=== PATIENT | male | born 1960 ===

== ENCOUNTER → 2016-10-23 | Outpatient (CLI) | payer OTHER ==
--- NOTE | 2016-10-23 22:04 | US ---
EXAMINATION TYPE: US scrotum with doppler. TECHNIQUE: Grayscale and color Doppler Duplex imaging performed of the scrotum. DATE OF EXAM: 10/23/2016 4:02 PM COMPARISON: No previous CLINICAL HISTORY: 55-year-old male disorder of male genital organs. Technologist notes: Patient spoke limited guamanian, he pointed to right testicle and right inguinal ca nal as area of concern. FINDINGS: TESTICLES: Right Testicle: 3.9 x 1.9 x 2.9 cm Left Testicle: 4.6 x 2.7 x 3.6 cm Both testicles show normal homogeneous echotexture without hyperemia. There is satisfactory arterial and venous flow on both sides. EPIDIDYMIS HEAD: Right Epididymis: 1.0 x 1.3 x 1.3 cm Left Epididymis: 0.9 x 0.9 x 1.5 cm No hyperemia. Presence of hydroceles: right 4.7cm, moderate size. Presence of varicoceles: no Scanned lateral right testicle and right inguinal canal, non-peristalsing well circumscribed elongate d hypoechoic area with minimal vascularity seen at patient's area of concern suggesting a fat contain ing right inguinal hernia. IMPRESSION: 1. Findings in the right inguinal region at the site of patient's concern show an elongated, nonperis talsing, hypoechoic structure suspected to represent a fat-containing right inguinal hernia extending nearly into the scrotal sac. 2. Moderate-sized right hydrocele. 3. No evidence for testicular torsion or epididymoorchitis.
== END ==
LOC: RADUSWWP 15:07
PROVIDERS: ATTEND Internal Medicine
DX: N43.3 Hydrocele, unspecified (principal); N50.9 Disorder of male genital organs, unspecified
CPT/HCPCS: 76870; 93975

== ENCOUNTER 2017-02-09 07:34 | Emergency (ER) | payer OTHER ==
[2017-02-09 07:42] VITALS: BP 128/75; PULSE 72; RESP 18; TEMP 97.2
[2017-02-09] MEDS ORDERED: predniSONE 50 MG TAB PO STA (08:05)
[2017-02-09] MEDS ORDERED: diphenhydrAMINE 50 MG/ML 1 ML VIAL IM STA (08:05)
--- NOTE | 2017-02-09 08:15 | ED ---
General Adult HPI - General Chief complaint: Skin/Abscess/Foreign Body Stated complaint: RASH, SKIN CONDITION Time Seen by Provider: 02/09/17 07:40 Source: patient, RN notes reviewed Mode of arrival: ambulatory Limitations: no limitations - History of Present Illness Initial comments: This is a 56-year-old male who presents emergency Department with raised rash on his back chest legs and arms. Patient states his scalp is also itchy. Patient denies any on his hands or feet. Patient states he's been taking Benadryl really helps a little. Patient states he seems to be better when he goes to bed but about 1 AM every morning the rash seems diarrhea. It itches all night. Patient does not know of any new medicines he is on he does not know of any new soaps or detergents. Patient denies any new perfumes or deodorants. Patient denies any difficulty breathing or shortness of breath per patient denies any tightening of the throat. Patient denies similar symptoms in the past. - Related Data Previous Rx's Medication Instructions Recorded Sulfamethoxazole/Trimethoprim 1 each PO Q12H 14 Days 09/09/16 [Bactrim DS 800-160 mg] predniSONE 40 mg PO DAILY #8 tab 02/09/17 Allergies Allergy/AdvReac Type Severity Reaction Status Date / Time No Known Allergies Allergy Verified 02/09/17 07:42 Review of Systems ROS Statement: Those systems with pertinent positive or pertinent negative responses have been documented in the HPI. ROS Other: All systems not noted in ROS Statement are negative. Past Medical History Past Medical History: No Reported History History of Any Multi-Drug Resistant Organisms: None Reported Past Surgical History: No Surgical Hx Reported Past Psychological History: No Psychological Hx Reported Smoking Status: Current every day smoker Past Alcohol Use History: None Reported Past Drug Use History: None Reported General Exam - General Exam Comments Initial Comments: GENERAL: Patient is well-developed and well-nourished. Patient is nontoxic and well- hydrated and is in mild distress. ENT: Neck is soft and supple. No significant lymphadenopathy is noted. Oropharynx is clear. Moist mucous membranes. Neck has full range of motion without eliciting any pain. EYES: The sclera were anicteric and conjunctiva were pink and moist. Extraocular movements were intact and pupils were equal round and reactive to light. Eyelids were unremarkable. PULMONARY: Unlabored respirations. Good breath sounds bilaterally. No audible rales rhonchi or wheezing was noted. CARDIOVASCULAR: There is a regular rate and rhythm without any murmurs gallops or rubs. SKIN: Patient's urticaria on his back chest arms and legs raised NEUROLOGIC: Patient is alert and oriented x3. Cranial nerves II through XII are grossly intact. Motor and sensory are also intact. Normal speech, volume and content. Symmetrical smile. MUSCULOSKELETAL: Normal extremities with adequate strength and full range of motion. Urticaria in his legs and arms LYMPHATICS: No significant lymphadenopathy is noted PSYCHIATRIC: Normal psychiatric evaluation. Limitations: no limitations Course Vital Signs 02/09/17 07:36 Temperature 97.2 F L Pulse Rate 72 Respiratory 18 Rate Blood Pressure 128/75 O2 Sat by Pulse 100 Oximetry Disposition Clinical Impression: Allergic reaction Disposition: HOME SELF-CARE Prescriptions: predniSONE 40 mg PO DAILY #8 tab Time of Disposition: 08:13
== END 2017-02-09 08:34 | disposition home or self-care (01) ==
LOC: EC 07:34
DX: T78.40XA Allergy, unspecified, initial encounter (principal); F17.200 Nicotine dependence, unspecified, uncomplicated
CPT/HCPCS: 99282; 96372; J1200; J7512

== ENCOUNTER 2017-04-17 15:18 | Emergency (ER) | payer OTHER ==
[2017-04-17 15:56] VITALS: RESP 18
[2017-04-17] MEDS ORDERED: methylPREDNISolone SOD SUCCI 125 MG/2 ML VIAL IM ONE (16:32)
[2017-04-17] MEDS ORDERED: FAMOTIDINE 20 MG TAB PO STA (16:33)
[2017-04-17] MEDS ORDERED: diphenhydrAMINE 50 MG CAP PO STA (16:33)
--- NOTE | 2017-04-17 16:40 | ED ---
Skin/Abscess/FB HPI - General Chief complaint: Skin/Abscess/Foreign Body Stated complaint: Infection/Eyes/arms Time Seen by Provider: 04/17/17 16:25 Source: patient Mode of arrival: ambulatory Limitations: no limitations - History of Present Illness Initial comments: Patient is a 56-year-old male presenting to the emergency department with complaints of ALLERGIC reaction. Patient does not speak Swazi and has an christian science reader at bedside. Per christian science reader, patient ate a banana at midnight last night and this morning developed swelling around his right eye, a generalized rash, and is currently complaining of itching. Per christian science reader, patient states he's had similar symptoms in the past. Per christian science reader, patient denies shortness of breath, breathing difficulties, or tongue swelling. No treatment prior to arrival. Per christian science reader, patient has no other symptoms. - Related Data Home Medications Medication Instructions Recorded Confirmed Naproxen Sodium [Aleve] 220 mg PO Q12HR PRN 04/17/17 04/17/17 Previous Rx's Medication Instructions Recorded Ranitidine HCl [Zantac] 150 mg PO BID #10 tab 04/17/17 diphenhydrAMINE [Benadryl] 50 mg PO Q6H PRN #16 capsule 04/17/17 predniSONE 50 mg PO DAILY #5 tablet 04/17/17 Allergies Allergy/AdvReac Type Severity Reaction Status Date / Time No Known Allergies Allergy Verified 04/17/17 16:21 Review of Systems ROS Statement: Those systems with pertinent positive or pertinent negative responses have been documented in the HPI. ROS Other: All systems not noted in ROS Statement are negative. Past Medical History Past Medical History: No Reported History History of Any Multi-Drug Resistant Organisms: None Reported Past Surgical History: No Surgical Hx Reported Past Psychological History: No Psychological Hx Reported Smoking Status: Current every day smoker Past Alcohol Use History: None Reported Past Drug Use History: None Reported General Exam - General Exam Comments Initial Comments: GENERAL: Pt awake and alert, well-appearing, well-nourished, and in no acute distress. HEAD: Atraumatic, normocephalic. EYES: Pupils equal, round, and reactive to light, extraocular movements intact, sclera anicteric, conjunctiva are normal. Patient has some mild swelling below his right eye. ENT: Oropharynx clear without exudates. Moist mucous membranes. No oral lesions. NECK:Normal range of motion, supple without lymphadenopathy or JVD. LUNGS: Breath sounds clear to auscultation bilaterally. No wheezes, rales, or rhonchi. HEART: Heart S1, S2, no S3 or S4. Regular rate and rhythm. No murmurs, rubs or gallops. ABDOMEN: Soft, nontender, nondistended, normoactive bowel sounds. No guarding, no rebound. No masses or organomegaly appreciated. MUSCULOSKELETAL: Normal ROM, no tenderness. Strength 5/5. EXTREMITIES: 2+ peripheral pulses. No edema. No calf tenderness. NEUROLOGICAL: Pt oriented x 3. No focal deficits noted. Strength and sensation grossly intact. PSYCH: Normal mood, normal affect. SKIN: Warm, dry. Generalized maculopapular rash with erythema consistent with hives. Limitations: no limitations Course Vital Signs 04/17/17 04/17/17 15:53 17:08 Temperature 97.0 F L 97.2 F L Pulse Rate 90 77 Respiratory 18 18 Rate Blood Pressure 118/78 118/77 O2 Sat by Pulse 97 Oximetry Medical Decision Making - Medical Decision Making ALLERGIC reaction with urticaria suspect secondary to banana without anaphylaxis. Patient treated with Solu-Medrol, Benadryl, and Pepcid. Patient instructed to follow-up with primary care physician and possibly meat dresser. Patient instructed to avoid foods that trigger ALLERGIC reaction. Discharge instructions and return parameters reviewed. Disposition Clinical Impression: Allergic reaction, Urticaria Disposition: HOME SELF-CARE Condition: Good Instructions: Urticaria (ED) Additional Instructions: Continue prednisone, Zantac, and Benadryl as directed. Follow-up with primary care physician as directed. Consider follow-up with meat dresser. Avoid foods that cause ALLERGIC reaction. Please return to the emergency department with symptoms of difficulty breathing, tongue tingling, swollen lips, any other worsening symptoms. Prescriptions: diphenhydrAMINE [Benadryl] 50 mg PO Q6H PRN #16 capsule PRN Reason: Allergic Reaction predniSONE 50 mg PO DAILY #5 tablet Ranitidine HCl [Zantac] 150 mg PO BID #10 tab Referrals: Donovan Nuñez MD [Primary Care Provider] - 1-2 days Time of Disposition: 16:39
[2017-04-17 17:12] VITALS: BP 118/77; PULSE 77; TEMP 97.2
== END 2017-04-17 17:08 | disposition home or self-care (01) ==
LOC: EC 15:18
DX: L50.0 Allergic urticaria (principal); F17.200 Nicotine dependence, unspecified, uncomplicated
CPT/HCPCS: 99283; 96372; J2930

== ENCOUNTER 2017-07-04 07:10 | Emergency (ER) | payer OTHER ==
[2017-07-04] MEDS ORDERED: methylPREDNISolone SOD SUCCI 125 MG/2 ML VIAL IM STA (08:32)
--- NOTE | 2017-07-04 08:38 | ED ---
General Adult HPI - General Chief complaint: Skin/Abscess/Foreign Body Stated complaint: Rash Time Seen by Provider: 07/04/17 08:16 Source: patient, RN notes reviewed Mode of arrival: ambulatory Limitations: language barrier - History of Present Illness Initial comments: Patient 56-year-old male who speaks limited Wolof presents with a chief complaint of a rash. History provided through an marine farmer stating that his had a rash off over the last several months. Has been seen here in emergency room for this. Has been taking some Benadryl, prednisone, rimantadine at times for this rash. She is located to the legs primarily in some spots on his torso. He states. Initially high light. Patient thought it was due to some food that he was eating and stopped this but still expresses rash. Unsure of any other new contacts. Patient denies any recent fever, chills, shortness of breath, chest pain, back pain, abdominal pain, nausea or vomiting, numbness or tingling, dysuria or hematuria, constipation or diarrhea, headaches or visual changes, or any other complaints. - Related Data Previous Rx's Medication Instructions Recorded Ranitidine HCl [Zantac] 150 mg PO BID #10 tab 04/17/17 diphenhydrAMINE [Benadryl] 50 mg PO Q6H PRN #16 capsule 04/17/17 predniSONE 50 mg PO DAILY #5 tablet 04/17/17 Ranitidine HCl 150 mg PO BID #20 tab 07/04/17 diphenhydrAMINE [Benadryl] 1 - 2 tab PO Q6HR PRN #30 capsule 07/04/17 predniSONE 60 mg PO DAILY 5 Days 07/04/17 Allergies Allergy/AdvReac Type Severity Reaction Status Date / Time No Known Allergies Allergy Verified 07/04/17 08:26 Review of Systems ROS Statement: Those systems with pertinent positive or pertinent negative responses have been documented in the HPI. ROS Other: All systems not noted in ROS Statement are negative. Past Medical History Past Medical History: No Reported History History of Any Multi-Drug Resistant Organisms: None Reported Past Surgical History: No Surgical Hx Reported Past Psychological History: No Psychological Hx Reported Smoking Status: Current every day smoker Past Alcohol Use History: None Reported Past Drug Use History: None Reported General Exam - General Exam Comments Initial Comments: General: The patient is awake and alert, in no distress, and does not appear acutely ill. Eye: Pupils are equal, round and reactive to light, extra-ocular movements are intact. No nystagmus. There is normal conjunctiva bilaterally. No signs of icterus. Ears, nose, mouth and throat: There are moist mucous membranes and no oral lesions. Neck: The neck is supple, there is no tenderness or JVD. Cardiovascular: There is a regular rate and rhythm. No murmur, rub or gallop is appreciated. Respiratory: Lungs are clear to auscultation, respirations are non-labored, breath sounds are equal. No wheezes, stridor, rales, or rhonchi. Musculoskeletal: Normal ROM, no tenderness. Strength 5/5. Sensation intact. Pulses equal bilaterally 2+. Neurological: A&O x 3. CN II-XII intact, There are no obvious motor or sensory deficits. Coordination appears grossly intact. Speech is normal. Skin: Like rash to the legs bilaterally and upper torso. No sign of infection. Psychiatric: Cooperative, appropriate mood & affect, normal judgment. Limitations: language barrier Course Vital Signs 07/04/17 07:18 Temperature 96.7 F L Pulse Rate 84 Respiratory 17 Rate Blood Pressure 119/72 O2 Sat by Pulse 100 Oximetry Medical Decision Making - Medical Decision Making Given shot of steroids here the emergency room for symptoms and have prescriptions for steroids, Benadryl, Pepcid renewed. Disposition Clinical Impression: Allergic reaction Disposition: HOME SELF-CARE Condition: Good Instructions: Urticaria (ED) Additional Instructions: Please use medications as prescribed and follow-up with family doctor for further evaluation of rash also dermatology as discussed. Return to emergency room if any symptoms increase or worsen or further concerns. Prescriptions: diphenhydrAMINE [Benadryl] 1 - 2 tab PO Q6HR PRN #30 capsule PRN Reason: Allergic Reaction predniSONE 60 mg PO DAILY 5 Days Ranitidine HCl 150 mg PO BID #20 tab Referrals: Donovan Nuñez MD [Primary Care Provider] - 1-2 days Martin Joseph MD [STAFF PHYSICIAN] - 1-2 days Time of Disposition: 08:34
[2017-07-04 08:44] VITALS: BP 115/68; PULSE 80; RESP 18; TEMP 97.6
== END 2017-07-04 08:44 | disposition home or self-care (01) ==
LOC: EC 07:10
DX: T78.49XA Other allergy, initial encounter (principal); F17.200 Nicotine dependence, unspecified, uncomplicated
CPT/HCPCS: 99282; 96372; J2930

== ENCOUNTER 2018-02-10 14:53 | Emergency (ER) | payer OTHER ==
[2018-02-10 15:08] VITALS: BP 111/71; PULSE 71; RESP 16; TEMP 97.9
--- NOTE | 2018-02-10 16:10 | ED ---
General Adult HPI - General Chief complaint: Skin/Abscess/Foreign Body Stated complaint: Rash Time Seen by Provider: 02/10/18 15:14 Source: patient, family, RN notes reviewed Mode of arrival: ambulatory Limitations: language barrier - History of Present Illness Initial comments: 57-year-old male presents to the emergency department with his nephew who is translating for him. Patient states that he has had a rash for one year. He shouldn't states the rash is on the insides of the elbow and the back. Patient states the rash moves around his body but has been consistently on the right shoulder and inner elbows for the past couple months. Patient states he had an appointment with Dr. Joseph (Derm) but did not go. Patient has been taking Zyrtec inconsistently over the past several months. Patient denies any other complaints at this time including fever, shortness of breath, chest pain, abdominal pain, nausea or vomiting. - Related Data Home Medications Medication Instructions Recorded Confirmed Cetirizine HCl [Zyrtec] 10 mg PO DAILY 02/10/18 02/10/18 Previous Rx's Medication Instructions Recorded Hydrocortisone Cream 1 applic TOPICAL BID #1 tube 02/10/18 [Hydrocortisone 1% Cream] Allergies Allergy/AdvReac Type Severity Reaction Status Date / Time No Known Allergies Allergy Verified 02/10/18 15:25 Review of Systems ROS Statement: Those systems with pertinent positive or pertinent negative responses have been documented in the HPI. ROS Other: All systems not noted in ROS Statement are negative. Past Medical History Past Medical History: No Reported History History of Any Multi-Drug Resistant Organisms: None Reported Past Surgical History: No Surgical Hx Reported Past Psychological History: No Psychological Hx Reported Smoking Status: Current every day smoker Past Alcohol Use History: None Reported Past Drug Use History: None Reported General Exam Limitations: language barrier General appearance: alert, in no apparent distress (layingin bed talking with Nephew) Respiratory exam: Present: normal lung sounds bilaterally. Absent: respiratory distress, wheezes, rales, rhonchi, stridor Cardiovascular Exam: Present: regular rate, normal rhythm, normal heart sounds. Absent: systolic murmur, diastolic murmur, rubs, gallop, clicks Skin exam: Present: rash (Patient has an erythematous raised 3 cm x 2 cm patch over the superior right scapula. Patient also has plaque-like erythema noted on bilateral inner elbows. No excoriations or signs of infection noted. No spreading redness or warmth to the rashes. No lesions inside the mouth.) Course Vital Signs 02/10/18 15:04 Temperature 97.9 F Pulse Rate 71 Respiratory 16 Rate Blood Pressure 111/71 O2 Sat by Pulse 97 Oximetry Medical Decision Making - Medical Decision Making 57-year-old male presents to the emergency department for a chief complaint of rash times one year. Patient states the rash has been on his posterior right shoulder and bilateral elbows. Patient has taken Zyrtec inconsistently over the past few months. On exam, rash is plaque-like on the inner elbows. It is raised and erythematous on the right shoulder blade. It does not appear infectious in nature. It is not generalized. No fevers or recent travel. Patient will be given a steroid cream to apply twice a day. He was directed to apply it to his inner elbows and affected area on right scapula twice a day. He is also to continue the Zyrtec daily. He is to follow up with either Dr. Joseph (derm) or his primary care doctor in one to 2 days. He is to return to the emergency department if symptoms worsen. Disposition Clinical Impression: Rash Disposition: HOME SELF-CARE Condition: Good Instructions: Eczema (ED) Additional Instructions: Please use steroid cream as directed. Please continue to take cetirizine daily. Return to the emergency department if you have any worsening symptoms. Otherwise follow-up with dermatology or primary care provider in 1-2 days. Prescriptions: Hydrocortisone Cream [Hydrocortisone 1% Cream] 1 applic TOPICAL BID #1 tube Is patient prescribed a controlled substance at d/c from ED?: No Referrals: Donovan Nuñez MD [Primary Care Provider] - 1-2 days Martin Joseph MD [STAFF PHYSICIAN] - 1-2 days Time of Disposition: 16:12
== END 2018-02-10 16:21 | disposition home or self-care (01) ==
LOC: EC 14:53
DX: R21 Rash and other nonspecific skin eruption (principal); F17.200 Nicotine dependence, unspecified, uncomplicated; Z79.899 Other long term (current) drug therapy
CPT/HCPCS: 99282

== ENCOUNTER 2018-07-01 14:28 | Emergency (ER) | payer OTHER ==
[2018-07-01 15:14] VITALS: RESP 18
--- NOTE | 2018-07-01 15:17 | ED ---
General Adult HPI - General Chief complaint: Upper Respiratory Infection Stated complaint: chest pain, ear pain Time Seen by Provider: 07/01/18 15:08 Source: patient, family, RN notes reviewed Mode of arrival: ambulatory Limitations: language barrier - History of Present Illness Initial comments: 57-year-old male presents for evaluation of cough and bilateral ear drainage. History is obtained from both the patient who speaks limited Indonesian and from his brother who is able to translate. Patient states that for the past 2 months he's had cough which is productive of sputum, and left-sided chest pain, pain is worse with cough. Patient is a current smoker. Denies fever or chills. Denies abdominal pain. States he's had some nausea vomiting however this was approximately 10 days ago. He also complains of bilateral ear drainage. Denies rhinorrhea. Denies sore throat. According to family member patient does not have any chronic medical problems. No heart condition, no known lung problems. - Related Data Previous Rx's Medication Instructions Recorded Loratadine [Claritin] 10 mg PO DAILY #30 tab 07/01/18 Allergies Allergy/AdvReac Type Severity Reaction Status Date / Time No Known Allergies Allergy Verified 07/01/18 16:04 Review of Systems ROS Statement: Those systems with pertinent positive or pertinent negative responses have been documented in the HPI. ROS Other: All systems not noted in ROS Statement are negative. Past Medical History Past Medical History: No Reported History History of Any Multi-Drug Resistant Organisms: None Reported Past Surgical History: No Surgical Hx Reported Past Psychological History: No Psychological Hx Reported Smoking Status: Current every day smoker Past Alcohol Use History: None Reported Past Drug Use History: None Reported General Exam Limitations: language barrier General appearance: alert, in no apparent distress Head exam: Present: atraumatic, normocephalic Eye exam: Present: normal appearance, PERRL ENT exam: Present: normal exam, TM's normal bilaterally Respiratory exam: Present: normal lung sounds bilaterally. Absent: respiratory distress, wheezes, rales, rhonchi Cardiovascular Exam: Present: regular rate, normal rhythm GI/Abdominal exam: Present: soft. Absent: distended, tenderness, guarding Extremities exam: Present: normal inspection, normal capillary refill. Absent: pedal edema Neurological exam: Present: alert, CN II-XII intact. Absent: motor sensory deficit Skin exam: Present: warm, dry, intact. Absent: cyanosis, diaphoretic Course Vital Signs 07/01/18 07/01/18 07/01/18 14:40 15:12 15:29 Temperature 97.8 F Pulse Rate 77 70 Pulse Rate [ 67 [employer] ] Respiratory 20 18 Rate Blood Pressure 107/71 113/75 O2 Sat by Pulse 98 97 Oximetry EKG Findings - EKG Comments: EKG Findings:: G: Normal sinus rhythm, rate of 67, HI interval 1:30, QRS duration 94, QTC 392, QTC 414, no ST segment elevation, T waves are upright Medical Decision Making - Medical Decision Making 57-year-old male presenting with symptoms concerning more for ALLERGIES and cough associated with tobacco use. However given the patient is a poor historian, workup is expanded in the emergency department. Chest x-rays obtained, negative for focal pneumonia or acute findings. EKG is obtained, this is negative for any acute ischemic changes. CBC, CMP, and troponin are obtained, these are all within normal limits. Patient will be given Claritin, he is encouraged to quit smoking. He will follow-up with his primary care physician. Return with worsening or changing symptoms. - Lab Data Result diagrams: 07/01/18 15:20 07/01/18 15:20 Lab Results 07/01/18 07/01/18 07/01/18 Range/Units 15:20 15:20 15:20 WBC 4.8 (3.8-10.6) k/uL RBC 5.09 (4.30-5.90) m/uL Hgb 14.7 (13.0-17.5) gm/dL Hct 44.5 (39.0-53.0) % MCV 87.5 (80.0-100.0) fL MCH 28.9 (25.0-35.0) pg MCHC 33.1 (31.0-37.0) g/dL RDW 13.0 (11.5-15.5) % Plt Count 205 (150-450) k/uL Neutrophils % 53 % Lymphocytes % 35 % Monocytes % 6 % Eosinophils % 5 % Basophils % 1 % Neutrophils # 2.5 (1.3-7.7) k/uL Lymphocytes # 1.7 (1.0-4.8) k/uL Monocytes # 0.3 (0-1.0) k/uL Eosinophils # 0.2 (0-0.7) k/uL Basophils # 0.0 (0-0.2) k/uL PT (9.0-12.0) sec INR (<1.2) APTT (22.0-30.0) sec Sodium 142 (137-145) mmol/L Potassium 4.5 (3.5-5.1) mmol/L Chloride 111 H (98-107) mmol/L Carbon Dioxide 27 (22-30) mmol/L Anion Gap 4 mmol/L BUN 19 (9-20) mg/dL Creatinine 0.74 (0.66-1.25) mg/dL Est GFR (CKD-EPI)AfAm >90 (>60 ml/min/1.73 sqM) Est GFR (CKD-EPI)NonAf >90 (>60 ml/min/1.73 sqM) Glucose 93 (74-99) mg/dL Calcium 8.8 (8.4-10.2) mg/dL Magnesium 1.9 (1.6-2.3) mg/dL Total Bilirubin 0.6 (0.2-1.3) mg/dL AST 21 (17-59) U/L ALT 25 (21-72) U/L Alkaline Phosphatase 77 (38-126) U/L Total Creatine Kinase 64 (55-170) U/L CK-MB (CK-2) 0.4 (0.0-2.4) ng/mL CK-MB (CK-2) Rel Index 0.6 Troponin I <0.012 (0.000-0.034) ng/mL NT-Pro-B Natriuret Pep pg/mL Total Protein 7.0 (6.3-8.2) g/dL Albumin 3.8 (3.5-5.0) g/dL 07/01/18 07/01/18 Range/Units 15:20 15:20 WBC (3.8-10.6) k/uL RBC (4.30-5.90) m/uL Hgb (13.0-17.5) gm/dL Hct (39.0-53.0) % MCV (80.0-100.0) fL MCH (25.0-35.0) pg MCHC (31.0-37.0) g/dL RDW (11.5-15.5) % Plt Count (150-450) k/uL Neutrophils % % Lymphocytes % % Monocytes % % Eosinophils % % Basophils % % Neutrophils # (1.3-7.7) k/uL Lymphocytes # (1.0-4.8) k/uL Monocytes # (0-1.0) k/uL Eosinophils # (0-0.7) k/uL Basophils # (0-0.2) k/uL PT 10.2 (9.0-12.0) sec INR 1.0 (<1.2) APTT 22.7 (22.0-30.0) sec Sodium (137-145) mmol/L Potassium (3.5-5.1) mmol/L Chloride (98-107) mmol/L Carbon Dioxide (22-30) mmol/L Anion Gap mmol/L BUN (9-20) mg/dL Creatinine (0.66-1.25) mg/dL Est GFR (CKD-EPI)AfAm (>60 ml/min/1.73 sqM) Est GFR (CKD-EPI)NonAf (>60 ml/min/1.73 sqM) Glucose (74-99) mg/dL Calcium (8.4-10.2) mg/dL Magnesium (1.6-2.3) mg/dL Total Bilirubin (0.2-1.3) mg/dL AST (17-59) U/L ALT (21-72) U/L Alkaline Phosphatase (38-126) U/L Total Creatine Kinase (55-170) U/L CK-MB (CK-2) (0.0-2.4) ng/mL CK-MB (CK-2) Rel Index Troponin I (0.000-0.034) ng/mL NT-Pro-B Natriuret Pep 23 pg/mL Total Protein (6.3-8.2) g/dL Albumin (3.5-5.0) g/dL Disposition Clinical Impression: Seasonal allergies, Upper respiratory infection, Tobacco use Disposition: HOME SELF-CARE Instructions: Upper Respiratory Infection (ED), Allergies (ED), How to Stop Smoking (ED) Additional Instructions: Please follow up with primary care physician. Return with worsening or changing symptoms. Prescriptions: Loratadine [Claritin] 10 mg PO DAILY #30 tab Is patient prescribed a controlled substance at d/c from ED?: No Referrals: Donovan Nuñez MD [Primary Care Provider] - 1-2 days Time of Disposition: 17:11
[2018-07-01 15:40] LABS: Basophils % (A) 1 %; Eosinophils # (A) 0.2 k/uL (0-0.7); Eosinophils % (A) 5 %; HCT 44.5 % (39.0-53.0); HGB 14.7 gm/dL (13.0-17.5); Lymphocytes # (A) 1.7 k/uL (1.0-4.8); Lymphocytes % (A) 35 %; MCH 28.9 pg (25.0-35.0); MCHC 33.1 g/dL (31.0-37.0); MCV 87.5 fL (80.0-100.0); Mean Platelet Volume 7.4; Monocytes # (A) 0.3 k/uL (0-1.0); Monocytes % (A) 6 %; Neutrophils # (A) 2.5 k/uL (1.3-7.7); Neutrophils % (A) 53 %; Platelet Count 205 k/uL (150-450); RBC 5.09 m/uL (4.30-5.90); WBC 4.8 k/uL (3.8-10.6)
--- NOTE | 2018-07-01 15:45 | XR ---
EXAMINATION TYPE: XR chest 2V DATE OF EXAM: 07/01/2018 COMPARISON: Prior chest x-ray 09/15/2017 HISTORY: Chest pain TECHNIQUE: Frontal and lateral views of the chest are obtained. FINDINGS: There is no focal air space opacity, pleural effusion, or pneumothorax seen. The cardiac silhouette size is within normal limits. The osseous structures are intact. There are overlying car diac leads. There is a spinal curvature. IMPRESSION: No acute cardiopulmonary process.
[2018-07-01 15:46] LABS: ALT 25 U/L (21-72); AST 21 U/L (17-59); Albumin 3.8 g/dL (3.5-5.0); Alkaline Phosphatase 77 U/L (38-126); Anion Gap 4 mmol/L; Blood Urea Nitrogen 19 mg/dL (9-20); Calcium 8.8 mg/dL (8.4-10.2); Carbon Dioxide 27 mmol/L (22-30); Chloride 111 mmol/L (98-107); Glucose 93 mg/dL (74-99); Magnesium 1.9 mg/dL (1.6-2.3); Potassium 4.5 mmol/L (3.5-5.1); Sodium 142 mmol/L (137-145); Total Bilirubin 0.6 mg/dL (0.2-1.3)
[2018-07-01 16:00] LABS: Partial Thromboplastin Time 22.7 sec (22.0-30.0); Prothrombin Time 10.2 sec (9.0-12.0)
[2018-07-01 16:05] LABS: Creatine Kinase 64 U/L (55-170)
[2018-07-01 16:17] LABS: Creatine Kinase MB 0.4 ng/mL (0.0-2.4); Troponin I <0.012 ng/mL (0.000-0.034)
[2018-07-01 17:54] VITALS: BP 100/73; PULSE 63; TEMP 97.1
== END 2018-07-01 17:35 | disposition home or self-care (01) ==
LOC: EC 14:28
DX: J30.2 Other seasonal allergic rhinitis (principal); J06.9 Acute upper respiratory infection, unspecified; R07.9 Chest pain, unspecified; F17.200 Nicotine dependence, unspecified, uncomplicated
CPT/HCPCS: 36415; 71046; 80053; 82550; 82553; 83735; 83880; 84484; 85025; 85610; 85730; 93005; 99285